=== PATIENT | female | born 1935 | race Caucasian/White ===

== ENCOUNTER → 2017-04-04 | Outpatient (CLI) | payer MEDICARE ==
[~2017-04-04] MED LIST: ADVAIR 250-501 EACH IH; CALCIUM PO; CERTAGEN PO; COMBIGAN; LIPITOR PO; PREVACID PO; SYNTHROID PO; TESSALON PERLE100 M1 PO; ZYRTEC PO
--- NOTE | ~2017-04-04 | CT2 ---
[facility] A Service of [facility] & [facility] RADIOLOGY TEXT RESULTS PATIENT: JOE AVILA LOCATION: [facility] [[email or web address]] : 39 UNIT #: [id number] AGE: [address]: Bony Hogan MD SEX: F ORDER DR: [id number] [place] [id number] O MR#: [id number] Acc #: [id number] NAME: JOE AVILA : 1935 SEX: F STUDY DATE/TIME: 04/04/2017 16:47 UNIT: [facility] [[email or web address] ROOM: STUDY DESCRIPTION: CT Abd and Pelv W Cont Attending Physician: Bony Hogan M.D. Ordering Physician: Rochelle Hammond M.D. Primary Care Physician: Rochelle Hammond M.D. MEDICAL IMAGING REPORT This report is preliminary unless electronic signature is present. STUDY CT of the abdomen and pelvis with IV contrast media. HISTORY Lower abdominal pain beginning 3 days ago. TECHNIQUE Axial imaging of the abdomen and pelvis was performed with an IV bolus of contrast media. This CT exam was performed with one or more of the following radiation dose reduction techniques: automatic exposure control, adjustment of mA and/or kV according to patient size, and iterative reconstruction. COMPARISON There are no prior CTs of the abdomen and pelvis for comparison. FINDINGS There is a large hiatal hernia. The majority of the stomach lies within the hernia sac. Liver is normal. Gallbladder is absent. Spleen is normal. The adrenal glands are normal. The pancreas appears normal. Tiny incidental cysts are identified in the kidneys. No dilated or thickened loops of bowel are seen in the abdomen. The appendix has been removed. The patient additionally has had a hysterectomy. There is inflammatory thickening of the upper aspect of the rectum, and of the sigmoid colon with adjacent inflammation. There is diverticulosis present, and there is at least 1 distended diverticulum associated with inflammation consistent with acute diverticulitis. There is no evidence of an associated fluid collection. The bladder is normal. No adnexal masses are present. CONCLUSIONS 1. Findings consistent with acute diverticulitis involving the rectum and distal sigmoid. [facility] A Service of [facility] & [facility] RADIOLOGY TEXT RESULTS PATIENT: JOE AVILA LOCATION: [facility] [[email or web address] : 39 UNIT #: [id number] AGE: [address]: Bony Hogan MD SEX: F ORDER DR: 2. Postop changes of cholecystectomy, appendectomy and hysterectomy. 3. Large hiatal hernia containing the majority the stomach. 4. No evidence of pelvic masses or fluid collections or abscesses. Dictated by... Jose De Jesus Vargas M.D. THIS IS AN ELECTRONICALLY VERIFIED REPORT Jose De Jesus Vargas M.D. at 04/05/2017 7:14 AM JENNIFER/barry TD: 04/04/2017 20:44 JOB #: [id number] MEDICAL IMAGING REPORT Page 1 of 1
[2017-04-04 16:00] LABS: POC - CREATININE 0.79 mg/dL (0.44-1.03); POC - GFR >60.0 mL/min (>60)
== END | disposition home or self-care (01) ==
LOC: SCT 15:30
PROVIDERS: Family Medicine
DX: K57.92 Diverticulitis of intestine, part unspecified, without perforation or abscess without bleeding (principal); K44.9 Diaphragmatic hernia without obstruction or gangrene; Z90.49 Acquired absence of other specified parts of digestive tract; Z90.710 Acquired absence of both cervix and uterus
CPT/HCPCS: 74177; 82565; Q9967